=== PATIENT | male | born 1975 | race Caucasian/White ===

== ENCOUNTER → 2017-07-30 | Outpatient (CLI) | payer OTHER ==
[~2017-07-30] VITALS: Ht 180.3 cm; Wt 107.7 kg
[~2017-07-30] MED LIST: NORVASC 5MG5 MG/TAB PO
[2017-07-30 15:47] VITALS: BP 154/86
--- NOTE | 2017-07-30 16:25 | NUR ---
PT TO CT VIA WC
[2017-07-30 17:02] VITALS: BP 140/75
== END ==
LOC: RAD 09:15 → LAB 09:15 → EDSTATUS 12:35
DX: R10.84 Generalized abdominal pain (principal); M54.5 Low back pain; Z87.442 Personal history of urinary calculi
CPT/HCPCS: J2270; J2405

== ENCOUNTER → 2017-08-11 | Outpatient (REF) ==
[2017-07-30 17:02] VITALS: BP 140/75
== END ==
LOC: LAB 16:15
DX: I10 Essential (primary) hypertension (principal); N20.0 Calculus of kidney

== ENCOUNTER → 2022-06-18 | Outpatient (REF) | LOC: LAB 10:34 | DX: R19.7 Diarrhea, unspecified (principal) ==

== ENCOUNTER → 2022-06-19 | Outpatient (REF) | LOC: LAB 07:45 | DX: R10.9 Unspecified abdominal pain (principal) ==